=== PATIENT | male | born 1980 | race Caucasian/White ===

== ENCOUNTER 2021-09-23 09:08 | Emergency (ER) | payer OTHER, BC, SELFPAY ==
[2021-09-23] VITALS (9 sets, daily range): BP systolic 140–160; BP diastolic 68–95; PULSE 53–100; RESP 12–20; TEMP 36.6–36.9; O2SAT 94–100; BMI 29.8; BMI 38.0; BMI 29.6
--- NOTE | 2021-09-23 09:23 | XR_ITS ---
FINAL REPORT CLINICAL HISTORY: fall obs deformity FINDINGS: RIGHT WRIST Three views were obtained. There is comminuted fracture at the base of the radial styloid and dorsal distal radius with proximal displacement of the carpal bones. There is also a fracture of the ulnar styloid process. IMPRESSION: Fractures as above. Reviewed, Interpreted and Dictated by Mumtaz Strange III, MD Transcribed by Claire Jaramillo Authenticated and [facility]
--- NOTE | 2021-09-23 09:25 | HMH.EDUTC ---
[facility] Disposition Clinical Impression: Deformity of right wrist Dislocation of wrist, right, closed Qualifiers: Encounter type: initial encounter Qualified Code(s): S63.004A - Unspecified dislocation of right wrist and hand, initial encounter Fracture of right distal radius Qualifiers: Encounter type: initial encounter Fracture type: closed Fracture morphology: unspecified fracture morphology Qualified Code(s): S52.501A - Unspecified fracture of the lower end of right radius, initial encounter for closed fracture Disposition: Xfer Short-Term Hosp Condition on Discharge: Good Instructions: DI for Moderate Sedation Referrals: Provider,Referral, MD [Primary Care Provider] - Forms: Transfer Record - ED Time of Disposition: 09:32 Medical Decision Making - Juan Inquiry Pt receiving controlled substance: No Juan was queried for this patient: No Vital Signs: 09/23/21 09:20 09/23/21 09:22 09/23/21 09:58 Temperature 98.5 F 98 F Temperature Source Oral Oral Pulse Rate Pulse Rate [Left Radial] 55 L 100 H 59 L Respiratory Rate 18 20 16 Blood Pressure Blood Pressure [Right Arm] 140/68 160/95 H 140/87 Blood Pressure Mean Blood Pressure Mean [Right Arm] 92 116 104 Blood Pressure Position Blood Pressure Position [Right Arm] Sitting 02 Sat by Pulse Oximetry 94 L 97 96 Oxygen Delivery Method Room Air Oxygen Flow Rate (LPM) 09/23/21 10:50 09/23/21 10:55 09/23/21 11:00 Temperature Temperature Source Pulse Rate 55 L 61 57 L Pulse Rate [Left Radial] 66 59 L Respiratory Rate 16 16 16 Blood Pressure 151/82 H 149/92 H 159/92 H Blood Pressure [Right Arm] 149/92 H 149/92 H Blood Pressure Mean 113 116 107 Blood Pressure Mean [Right Arm] 111 111 Blood Pressure Position Sitting Blood Pressure Position [Right Arm] Sitting Sitting 02 Sat by Pulse Oximetry 98 98 100 Oxygen Delivery Method Nasal Cannula Nasal Cannula Room Air Oxygen Flow Rate (LPM) 4 4 09/23/21 11:05 09/23/21 11:17 09/23/21 12:50 Temperature 98 F Temperature Source Oral Pulse Rate 56 L 59 L Pulse Rate [Left Radial] 56 L Respiratory Rate 14 16 16 Blood Pressure 144/88 H 140/89 Blood Pressure [Right Arm] 152/82 H Blood Pressure Mean 100 Blood Pressure Mean [Right Arm] 105 Blood Pressure Position Sitting Blood Pressure Position [Right Arm] Sitting 02 Sat by Pulse Oximetry 99 98 Oxygen Delivery Method Nasal Cannula Room Air Oxygen Flow Rate (LPM) 4 Orders (Tests/Meds): ED MEDICATIONS Discontinued Medications Generic Name Dose Route Start Last Admin Trade Name Laurence PRN Reason Stop Dose Admin Morphine Sulfate 4 mg 09/23/21 09:30 09/23/21 09:32 Morphine 4mg/Ml Syringe IV 09/23/21 09:31 4 mg ONCE ONE Administration Morphine Sulfate 4 mg 09/23/21 09:51 09/23/21 09:52 Morphine 4mg/Ml Syringe IV 09/23/21 09:52 4 mg ONCE ONE Administration Ondansetron HCl 8 mg 09/23/21 09:30 09/23/21 09:31 Ondansetron 4mg/2ml Vial IV 09/23/21 09:31 8 mg ONCE ONE Administration Medical Decision Narrative: Obvious deformity to right wrist with abrasion on inside of wrist after falling 6-8ft from ladder states landed wrong Patient pale in color sweating profusely states that he needs pain medication feels like he is going to pass out Due to obvious deformity and falling 6-8ft from ladder patient to be sent to the ED for further treatment and evaluation patient agreed Called ED patient was moved to room 2 [facility] HPI - General Stated complaint: WC 09/23 rt wrist injury Time Seen by Provider: 09/23/21 09:26 Description of Symptoms (Recalled from Triage Doc. by RN): patient comes in for fall from ladder. right wrist has obvious deformity. patient states he fell 6-8 feet. HEENT Symptoms (Recalled from RN notes): No Resp Symptoms (Recalled from RN notes): No Skin Symptoms (Recalled from RN notes): No MS Symptoms (Recalled from RN notes): Yes Functional Status (Recalled from
--- NOTE | 2021-09-23 09:35 | PC.NURSE ---
medicated for pain at this time
--- NOTE | 2021-09-23 09:38 | PC.NURSE ---
radiology at bedside
--- NOTE | 2021-09-23 09:42 | HMH.EDUPEXT ---
ED Disposition Clinical Impression: Deformity of right wrist Dislocation of wrist, right, closed Qualifiers: Encounter type: initial encounter Qualified Code(s): S63.004A - Unspecified dislocation of right wrist and hand, initial encounter Fracture of right distal radius Qualifiers: Encounter type: initial encounter Fracture type: closed Fracture morphology: unspecified fracture morphology Qualified Code(s): S52.501A - Unspecified fracture of the lower end of right radius, initial encounter for closed fracture Disposition: Xfer Short-Term Hosp Condition on Discharge: Good Instructions: DI for Moderate Sedation Referrals: Provider,Referral, MD [Primary Care Provider] - Forms: Transfer Record - ED - Critical Care Critical Care Time: No Attestation: On 09/23/21, the high probability of a clinically significant, sudden or life threatening deterioration of the following system(s) required my full and direct attention, intervention and personal management. The time I documented below is in addition to time spent performing reported procedures but includes the following listed in this critical care notation. Medical Decision Making - Medical Records Medical records reviewed: Yes: I reviewed the patient's medical records. - Juan Inquiry Pt receiving controlled substance: No Vital Signs: 09/23/21 09:20 09/23/21 09:22 09/23/21 09:58 Temperature 98.5 F 98 F Temperature Source Oral Oral Pulse Rate Pulse Rate [Left Radial] 55 L 100 H 59 L Respiratory Rate 18 20 16 Blood Pressure Blood Pressure [Right Arm] 140/68 160/95 H 140/87 Blood Pressure Mean Blood Pressure Mean [Right Arm] 92 116 104 Blood Pressure Position Blood Pressure Position [Right Arm] Sitting 02 Sat by Pulse Oximetry 94 L 97 96 Oxygen Delivery Method Room Air Oxygen Flow Rate (LPM) 09/23/21 10:50 09/23/21 10:55 09/23/21 11:00 Temperature Temperature Source Pulse Rate 55 L 61 57 L Pulse Rate [Left Radial] 66 59 L Respiratory Rate 16 16 16 Blood Pressure 151/82 H 149/92 H 159/92 H Blood Pressure [Right Arm] 149/92 H 149/92 H Blood Pressure Mean 113 116 107 Blood Pressure Mean [Right Arm] 111 111 Blood Pressure Position Sitting Blood Pressure Position [Right Arm] Sitting Sitting 02 Sat by Pulse Oximetry 98 98 100 Oxygen Delivery Method Nasal Cannula Nasal Cannula Room Air Oxygen Flow Rate (LPM) 4 4 09/23/21 11:05 09/23/21 11:17 Temperature Temperature Source Pulse Rate 56 L Pulse Rate [Left Radial] 56 L Respiratory Rate 14 16 Blood Pressure 144/88 H Blood Pressure [Right Arm] 152/82 H Blood Pressure Mean 100 Blood Pressure Mean [Right Arm] 105 Blood Pressure Position Blood Pressure Position [Right Arm] Sitting 02 Sat by Pulse Oximetry 99 98 Oxygen Delivery Method Nasal Cannula Oxygen Flow Rate (LPM) 4 Orders (Tests/Meds): ED MEDICATIONS Discontinued Medications Generic Name Dose Route Start Last Admin Trade Name Laurence PRN Reason Stop Dose Admin Morphine Sulfate 4 mg 09/23/21 09:30 09/23/21 09:32 Morphine 4mg/Ml Syringe IV 09/23/21 09:31 4 mg ONCE ONE Administration Morphine Sulfate 4 mg 09/23/21 09:51 09/23/21 09:52 Morphine 4mg/Ml Syringe IV 09/23/21 09:52 4 mg ONCE ONE Administration Ondansetron HCl 8 mg 09/23/21 09:30 09/23/21 09:31 Ondansetron 4mg/2ml Vial IV 09/23/21 09:31 8 mg ONCE ONE Administration ORDERS Category Date Time Status Wrist XR right 2 views [XR wrist RT 2V] Stat Exams 09/23/21 10:33 Taken - Physician Consults Time: 11:42 (Dr Jamey Rutledge [facility] accpts transfer) Upper Extremity HPI - General Stated Complaint: WC 09/23 rt wrist injury Time Seen by Provider: 09/23/21 09:26 Description of Symptoms (Recalled from ER Triage Doc. by RN): patient comes in for fall from ladder. right wrist has obvious deformity. patient states he fell 6-8 feet. - History of Present Illness HPI narrative: rt wrist pain, f
--- NOTE | 2021-09-23 09:56 | PC.NURSE ---
ice pack given
--- NOTE | 2021-09-23 10:04 | XR_ITS ---
FINAL REPORT CLINICAL HISTORY: FALL, pain FINDINGS: 2 views of the right elbow were obtained. There is no acute fracture or dislocation. There is no joint effusion. The joint spaces are intact. There are no acute soft tissue abnormalities. IMPRESSION: No acute process. Reviewed, Interpreted and Dictated by Mumtaz Strange III, MD Transcribed by Sergey Espinosa Authenticated and [facility]
--- NOTE | 2021-09-23 10:33 | XR_ITS ---
FINAL REPORT CLINICAL HISTORY: trauma/lateral needed, POST SPLINT COMPARISON: Earlier on the same day FINDINGS: RIGHT WRIST 2 views were obtained. There has been interval reduction of the distal radial and ulnar fractures. There is improved bony alignment. There is persistent distraction of the radial fracture fragments of up to 6 mm. A splint is present. IMPRESSION: Persistent distraction of the radial fracture fragments up to 6 mm. Reviewed, Interpreted and Dictated by Mumtaz Strange III, MD Transcribed by Lolis Jim Authenticated and [facility]
--- NOTE | 2021-09-23 10:50 | PC.NURSE ---
at with nursing staff
--- NOTE | 2021-09-23 11:00 | PC.NURSE ---
SUGAR TONG SPLINT APPLIED TO RT ARM
--- NOTE | 2021-09-23 11:11 | PC.NURSE ---
Called [facility] for ortho per pt request for a Dr Fountain, he is on vacation and no on in the office.
--- NOTE | 2021-09-23 11:17 | PC.NURSE ---
radiology notified to [employer] [facility] to [facility]
--- NOTE | 2021-09-23 11:25 | PC.NURSE ---
contacted radiology to check on status of images being powershared to [facility], spoke with sharonda in radiology. States they shared images at 1110. [facility] is states they can not view images. Sharonda states she is going to reshare images. Notified CARRIE LI
--- NOTE | 2021-09-23 11:33 | PC.NURSE ---
pt accepted to [facility] by Dr. Concepcion.
--- NOTE | 2021-09-23 11:51 | PC.NURSE ---
notified [facility] of transfer to [facility]
--- NOTE | 2021-09-23 12:00 | PC.NURSE ---
REPORT GIVEN TO RAMY AT [facility] ED AT THIS TIME.
--- NOTE | 2021-09-23 12:00 | PC.NURSE ---
ICE PACK CHANGED AND REAPPLIED. FAMILY UPDATED ON PLAN OF CARE
--- NOTE | 2021-09-23 12:25 | PC.NURSE ---
report given to [facility]
== END 2021-09-23 12:52 | disposition short-term general hospital (02) ==
LOC: UTC 09:14 → ER 09:22
PROVIDERS: Emergency Provider Emergency Medicine
DX: S63.004A Unspecified dislocation of right wrist and hand, initial encounter (principal); R61 Generalized hyperhidrosis; Z88.0 Allergy status to penicillin; W01.198A Fall on same level from slipping, tripping and stumbling with subsequent striking against other object, initial encounter
CPT/HCPCS: 29125; 73070; 73100; 73110; 96374; 96375; 96376; 99285; J2405

== ENCOUNTER → 2021-09-30 08:42 | Outpatient (CLI) | payer BC, SELFPAY | PROVIDERS: Visit Provider Orthopaedic Surgery Hand Surgery | DX: U07.1 COVID-19 (principal) | CPT/HCPCS: C9803; U0003; U0005 ==

== ENCOUNTER 2022-06-03 12:58 | Observation (INO) | payer BC, SELFPAY ==
[2022-06-03] VITALS (8 sets, daily range): BP systolic 110–128; BP diastolic 60–71; PULSE 73–84; RESP 16–18; TEMP 36.6–37.3; O2SAT 98–100; BMI 28.8
[2022-06-03 13:34] LABS: Basophils % 0.2 % (0.1-2.0); Eosinophils # 0.1 K/mm3 (0.0-0.4); Lymphocytes % 29.2 % (10-50); Mean Corpuscular HGB Conc 30.7 g/dL (31.8-35.4); Mean Corpuscular Volume 81.3 fl (80-94); Mean Platelet Volume 10.6 fl (7.4-10.4); Monocytes # 0.5 K/mm3 (0.1-1.0); Monocytes % 7.3 % (1.7-9.3); Neutrophils # 4.3 K/mm3 (1.8-7.8); Neutrophils % 62.3 % (37.0-80.0); Platelet Count 213 K/mm3 (142-424); Red Blood Count 2.14 M/mm3 (4.60-6.20); Red Cell Distribution Width 16.8 % (11.5-17.5); White Blood Count 6.9 K/mm3 (4.8-10.8)
[2022-06-03 13:37] LABS: Chloride 107 mmol/L (98-107)
[2022-06-03 13:38] LABS: Potassium 3.4 mmoL/L (3.5-5.1); Sodium 137 mmol/L (136-145)
[2022-06-03 13:40] LABS: Alanine Aminotransferase 20 U/L (12-78); Alkaline Phosphatase 46 U/L (38-126); Aspartate Amino Transferase 23 U/L (17-59); Bilirubin,Total 0.3 mg/dl (0.2-1.3); Blood Urea Nitrogen 11 mg/dl (9-20); Creatinine Clearance Estimated 194 mL/min (50-200); Estimated Glomerular Filt Rate 147 ml/min (>60); GFR (African American) 178 ML/MIN (>60); Hematocrit 17.4 % (42.0-52.0)
--- NOTE | 2022-06-03 13:40 | PC.NURSE ---
CARRIE LI notified of critical hemaglobin and hematocrit CARRIE LI states he will place and order type and cross match for 2units- notified lab CARRIE LI will be placing this order.
[2022-06-03 13:41] LABS: Albumin Level 3.9 g/dl (3.5-5.0); Anion Gap 7.4 mEq/L (5-15); Calcium 7.9 mg/dl (8.4-10.2); Carbon Dioxide 26 mmol/L (22.0-30.0); Glucose 159 mg/dl (74-100); Lipase 71 U/L (23-300); Total Protein,Serum 5.9 g/dl (6.3-8.2)
--- NOTE | 2022-06-03 13:48 | PC.NURSE ---
Updated patient and spouse about critically low Hgb/Hct result being released by Lab, anticipating type, crossmatch and transfusion of 2 units PRBCs for pt
--- NOTE | 2022-06-03 14:04 | PC.NURSE ---
Dr. Henning at bedside seeing pt
--- NOTE | 2022-06-03 14:15 | HMH.EDGENADL ---
Discharge Plan Disposition Patient Disposition: Admitted as Observation Condition: Fair Chief Complaint: Abdominal Pain Referrals Follow up/Referrals: Lolis Crum PA [Primary Care Provider] - See instructions Clinical Impressions Clinical Impression: Acute blood loss anemia, Melena Discharge ED Provider: Anthony Henning General Adult HPI General Chief complaint: Abdominal Pain Stated complaint: Weakness excessive burping facial color changing Time Seen by Provider: 06/03/22 13:56 Mode of Arrival: Ambulatory Source of Information: Patient Limitations: No Limitations Description of Symptoms (Recalled from ER Triage Doc. by RN): Pt w presenting to ED c/o 1 week of worsening sensation of GI fullness, burping, LUQ pain, 10lb weight loss, with subjective color changes History of Present Illness HPI narrative: Patient complains of lack of energy and fatigue for couple of weeks. Noticed pale skin color on Wednesday, 5 days ago. Stool has been black for several days. No hematemesis. Has a sensation of epigastric fullness and belching. He has been off of work for wrist injury for about 8 months. Just went back to work 3 weeks ago. He takes meloxicam for his wrist about once a week and occasionally takes an ibuprofen. He is not on any NSAIDs on a daily basis. He very rarely drinks alcohol, none within the past week. No history of GI bleed or peptic ulcer disease. Related Data Allergies Allergy/AdvReac Type Severity Reaction Status Date / Time Penicillins [PENICILLINS] Allergy Unknown Verified 09/23/21 09:25 [facility] Disclaimer: The information contained in this section may have been updated after the patient was seen, as this information can be updated by other users. Social History Smoking Status: Current every day smoker ROS Obtained: Yes Systems reviewed as appropriate & no additional complaints except as documented Constitutional Constitutional: Reports fatigue, Denies fever(s), Denies headache(s) and Denies weakness ENT Ears, Nose, Mouth, and Throat: Denies headache(s), Denies nasal discharge and Denies sore throat Cardiovascular Cardiovascular: Denies chest pain Respiratory Respiratory: Denies shortness of breath and Denies cough Gastrointestinal Gastrointestingal: Reports abdominal pain and melena; Denies constipation, diarrhea, hematemesis, hematochezia or vomiting Genitourinary Male Genitourinary: Denies difficulty urinating and Denies flank pain Musculoskeletal Musculoskeletal: Denies numbness Neurologic Neurologic: Denies headache(s), Denies numbness and Denies weakness Endocrine Endocrine: Reports fatigue Physical Exam General General appearance: alert and in no apparent distress Head Head exam: atraumatic and normocephalic Eye Eye exam: Present normal appearance and EOMI ENT ENT exam: Present mucous membranes moist Neck Neck exam: Present normal inspection and trachea midline Chest Chest inspection: Present normal inspection and symmetric chest wall rise Respiratory Respiratory exam: Present normal lung sounds bilaterally; Absent respiratory distress Cardiovascular Cardiovascular exam: Present regular rate, normal rhythm and normal heart sounds Abdominal Exam Abdominal exam: Present soft and normal bowel sounds; Absent distention, tenderness, guarding, rebound or rigidity Rectal Exam Rectal exam: Present normal inspection, normal rectal tone and other (Rectal vault empty, minimal smear of stool obtained for occult blood testing) Extremities Exam Extremities exam: Present normal inspection Neurological Exam Neurological exam: Present alert and oriented X3 Psychiatric Psychiatric exam: Present normal affect and normal mood Skin Skin exam: Present warm, dry and pallor Medical Decision Making Juan Inquiry Pt receiving controlled substance: No Vital Signs: 06/03/22 13:15 06/03/22 14:37 Temperature 97.9 F Temperature Source Oral Pulse Rate 76 Pulse Rate [Left R
[2022-06-03 14:18] LABS: Occult Blood,Stool Positive (Negative)
--- NOTE | 2022-06-03 14:41 | PC.NURSE ---
hook top tube for lactic acid sent to lab
[2022-06-03 14:50] LABS: Activated Partial Thrombo Time 20.2 seconds (22.8-30.6); INR 1.03 (0.9-1.1); Prothrombin Time 11.1 seconds (10.1-12.5)
[2022-06-03 15:02] LABS: Hemoglobin 5.3 g/dL (14.1-18.0)
[2022-06-03 15:03] LABS: Lactic Acid 0.9 mmol/L (0.7-2.1)
--- NOTE | 2022-06-03 15:17 | EXP.HP ---
History of Present Illness *Admission Date: 06/03/22 *Reason for visit:: Fatigue, weakness *History of present illness: Mr. Bray is a pleasant 41-year-old gentleman with no significant past medical history. States he has been having progressive weakness and fatigue over the past month. His family remarked that he is gotten more pale over the past week and encouraged him to come to the ER for evaluation. On arrival the patient is stable on room air, normal blood pressure normal heart rate. Labs concerning for marked anemia with hemoglobin of 5.3. No other significant lab abnormalities. Stool guaiac positive. He does report that he has been having some intermittent dark stools and epigastric discomfort like heartburn for the past few weeks. He does not drink regularly, maybe once a month. Takes NSAIDs once a week for wrist pain. Otherwise in his normal baseline health. Medicine consulted for admission. Denies chest pain, shortness of breath, syncope, confusion PFSH PFS Disclaimer: The information contained in this section may have been updated after the patient was seen, as this information can be updated by other users. Medical History (Updated 06/03/22 @ 17:06 by Zoraida Reid RN) No significant past medical history No significant past medical history Family History (Updated 06/03/22 @ 17:06 by Zoraida Reid RN) No significant family history Social History (Updated 06/03/22 @ 17:07 by Zoraida Reid RN) Smoking Status: Never smoker alcohol intake: never substance use type: marijuana current occupational status: other Travel in the last 8 weeks: None Review of Systems Review of Systems Review of systems (narrative): 14 point review of systems performed, pertinent positives and negatives as per HPI Constitutional Constitutional: Denies headache(s) and Denies weakness ENT Ears, Nose, Mouth, and Throat: Denies headache(s) *Musculoskeletal Musculoskeletal: Denies numbness *Neurologic Neurologic: Denies headache(s), Denies numbness and Denies weakness Meds Home Medications and Allergies New Prescriptions to Start Prescriptions: Allergies Allergy/AdvReac Type Severity Reaction Status Date / Time Penicillins [PENICILLINS] Allergy Unknown Verified 09/23/21 09:25 Exam Data for Last 24 hours Vital signs and Labs for Last 24 Hours: Temp Pulse Resp BP Pulse Ox 97.9 F 76 16 110/71 100 06/03/22 13:15 02/22/23 14:37 06/03/22 13:15 06/03/22 14:37 06/03/22 14:37 Laboratory Results - last 24 hr 06/03/22 13:10: WBC 6.9, RBC 2.14 L, Hgb 5.3 L*, Hct 17.4 L*, MCV 81.3, MCH 25.0 L, MCHC 30.7 L, RDW 16.8, Plt Count 213, MPV 10.6 H, Neut % (Auto) 62.3, Lymph % (Auto) 29.2, Greenlee % (Auto) 7.3, Eos % (Auto) 1.0, Baso % (Auto) 0.2, Neut # (Auto) 4.3, Lymph # (Auto) 2.0, Greenlee # (Auto) 0.5, Eos # (Auto) 0.1, Baso # (Auto) 0.0 06/03/22 13:10: Sodium 137, Potassium 3.4 L, Chloride 107, Carbon Dioxide 26, Anion Gap 7.4, BUN 11, Creatinine 0.60 L, Estimated Creat Clear 194, Estimated GFR 147, Est GFR ( Amer) 178, Glucose 159 H, Calcium 7.9 L, Total Bilirubin 0.3, AST 23, ALT 20, Alkaline Phosphatase 46, Total Protein 5.9 L, Albumin 3.9, Globulin 2.0, Albumin/Globulin Ratio 2.0 H, Lipase 71 06/03/22 13:11: PT 11.1, INR 1.03, APTT 20.2 L 06/03/22 13:55: Stool Occult Blood Positive A 06/03/22 14:37: Lactate 0.9 I & O for Last 24 hours: Intake & Output 05/31/22 06/01/22 06/02/22 06/03/22 23:59 23:59 23:59 23:59 Weight 86.183 kg Constitutional Constitutional: no acute distress and average body habitus *Routine HEENT Exam Head: Present normocephalic and atraumatic Eye: Present EOMI and PERRL ENT: Present mucous membranes moist Comments: conjunctival pallor *Routine Neck Exam Neck: Present supple; Absent JVD Routine Chest/Breast/Axilla Exam Chest wall: Absent tenderness *Routine Respiratory Exam Respiratory: Present CTA bilaterally; Absent accessory muscle use, respiratory dis
--- NOTE | 2022-06-03 15:54 | PC.NURSE ---
Helen from lab called, have to get type and screen done by [facility] due to issues.
--- NOTE | 2022-06-03 15:56 | PC.NURSE ---
notified [facility] house oiler of admission
[2022-06-03 16:12] LABS: Coronavirus 19, PCR Not Detected (NotDetected); Influenza A, PCR Not Detected (NotDetected); Influenza B, PCR Not Detected (NotDetected)
--- NOTE | 2022-06-03 16:31 | PC.NURSE ---
dr. young at BS
--- NOTE | 2022-06-03 16:35 | PC.NURSE ---
report called to delio crook rn on second floor at this time, states she will send staff down to transport pt. notified her covid swab is pending house okayed for pt to go up to second floor with swab pending. also pt has antibodies that are requiring that we receive blood from [facility].
--- NOTE | 2022-06-03 18:38 | PC.NURSE ---
PT VSS, NO C/O OTHER THAN BEING TIRED AT THE MOMENT. PT REF CLEAR LIQUIDS AND SCUDS. WAITING ON PT BLOOD. NO SKIN ISSUES OR COMPLAINTS/CONCERNS AT THIS TIME. ERYTHROMYCIN ORDER, PER AMARJIT GIVE 30-60MINS PRIOR TO EGD, WHEN RAFAEL SCHEDULES A TIME. 2 HR POST H&H. NO SKIN ISSUES NOTED.
[2022-06-04] VITALS (36 sets, daily range): BP systolic 87–131; BP diastolic 38–82; PULSE 61–82; RESP 16–18; TEMP 36.5–37.1; O2SAT 16–100; BMI 28.8
--- NOTE | 2022-06-04 04:50 | PC.NURSE ---
Blood started at 03:40 and no changes noted.
[2022-06-04 06:30] LABS: Chloride 107 mmol/L (98-107); Sodium 136 mmol/L (136-145)
[2022-06-04 06:31] LABS: Basophils % 0.3 % (0.1-2.0); Eosinophils # 0.1 K/mm3 (0.0-0.4); Eosinophils % 1.3 % (0.1-12.0); Lymphocytes # 1.4 K/mm3 (0.7-4.5); Lymphocytes % 31.9 % (10-50); Mean Corpuscular Volume 86.7 fl (80-94); Mean Platelet Volume 11.7 fl (7.4-10.4); Monocytes # 0.4 K/mm3 (0.1-1.0); Monocytes % 8.9 % (1.7-9.3); Neutrophils # 2.5 K/mm3 (1.8-7.8); Neutrophils % 57.5 % (37.0-80.0); Platelet Count 137 K/mm3 (142-424); Red Blood Count 2.23 M/mm3 (4.60-6.20); White Blood Count 4.3 K/mm3 (4.8-10.8)
[2022-06-04 06:31] LABS: Potassium 3.5 mmoL/L (3.5-5.1)
--- NOTE | 2022-06-04 06:32 | PC.NURSE ---
Called lab and spoke with charge and house about getting the timer on the blood to end. Blood ended at 06:20 and completion vitals entered.
[2022-06-04 06:33] LABS: Alanine Aminotransferase 18 U/L (12-78); Albumin Level 3.3 g/dl (3.5-5.0); Albumin/Globulin Ratio 1.7 (1.1-1.8); Alkaline Phosphatase 46 U/L (38-126); Anion Gap 6.5 mEq/L (5-15); Aspartate Amino Transferase 23 U/L (17-59); Bilirubin,Total 0.4 mg/dl (0.2-1.3); Blood Urea Nitrogen 7 mg/dl (9-20); Calcium 7.5 mg/dl (8.4-10.2); Carbon Dioxide 26 mmol/L (22.0-30.0); Creatinine Clearance Estimated 194 mL/min (50-200); Estimated Glomerular Filt Rate 147 ml/min (>60); GFR (African American) 178 ML/MIN (>60); Glucose 113 mg/dl (74-100); Total Protein,Serum 5.3 g/dl (6.3-8.2)
[2022-06-04 06:34] LABS: Magnesium 2.2 mg/dl (1.6-2.3)
[2022-06-04 06:35] LABS: Hematocrit 19.3 % (42.0-52.0); Hemoglobin 5.8 g/dL (14.1-18.0)
--- NOTE | 2022-06-04 06:37 | EXP.SURG.CON ---
History of Present Illness *Admission Date: 06/03/22 *Reason for visit:: Anemia *History of present illness: This is a 41-year-old gentleman seen in consultation from the Hospitalist Service after evaluation in the emergency department for progressive weakness/fatigue. He was found to have fairly profound anemia with a hemoglobin of 5.8. Stool guaiac positive. Intermittent dark stool . He has received 1 unit of packed red blood cells and states he feels not too bad . He is scheduled to receive an additional 1 unit of packed red blood cells this morning. Please see HPI forwarded from admission H&P below. Forwarded from admission H&P: Mr. Bray is a pleasant 41-year-old gentleman with no significant past medical history. States he has been having progressive weakness and fatigue over the past month. His family remarked that he is gotten more pale over the past week and encouraged him to come to the ER for evaluation. On arrival the patient is stable on room air, normal blood pressure normal heart rate. Labs concerning for marked anemia with hemoglobin of 5.3. No other significant lab abnormalities. Stool guaiac positive. He does report that he has been having some intermittent dark stools and epigastric discomfort like heartburn for the past few weeks. He does not drink regularly, maybe once a month. Takes NSAIDs once a week for wrist pain. Otherwise in his normal baseline health. Medicine consulted for admission. Denies chest pain, shortness of breath, syncope, confusion [facility] Disclaimer: The information contained in this section may have been updated after the patient was seen, as this information can be updated by other users. Medical History (Updated 06/03/22 @ 17:06 by Zoraida Reid RN) No significant past medical history No significant past medical history Family History (Updated 06/03/22 @ 17:06 by Zoraida Reid RN) No significant family history Social History (Updated 06/03/22 @ 17:23 by Flavio Winston MD) Smoking Status: Never smoker alcohol intake: never substance use type: marijuana current occupational status: other Travel in the last 8 weeks: None Review of Systems Constitutional Constitutional: Denies headache(s) and Denies weakness ENT Ears, Nose, Mouth, and Throat: Denies headache(s) *Musculoskeletal Musculoskeletal: Denies numbness *Neurologic Neurologic: Denies headache(s), Denies numbness and Denies weakness Meds Home Medications and Allergies New Prescriptions to Start Prescriptions: Allergies Allergy/AdvReac Type Severity Reaction Status Date / Time Penicillins [PENICILLINS] Allergy Unknown Verified 09/23/21 09:25 Exam (Inpt) Vital signs and Labs for Last 24 Hours: Temp Pulse Resp BP Pulse Ox 98.2 F 66 17 115/53 L 99 06/04/22 06:20 06/04/22 06:20 06/04/22 06:20 06/04/22 06:20 06/04/22 06:20 Laboratory Results - last 24 hr 06/03/22 13:10: WBC 6.9, RBC 2.14 L, Hgb 5.3 L*, Hct 17.4 L*, MCV 81.3, MCH 25.0 L, MCHC 30.7 L, RDW 16.8, Plt Count 213, MPV 10.6 H, Neut % (Auto) 62.3, Lymph % (Auto) 29.2, Maries % (Auto) 7.3, Eos % (Auto) 1.0, Baso % (Auto) 0.2, Neut # (Auto) 4.3, Lymph # (Auto) 2.0, Maries # (Auto) 0.5, Eos # (Auto) 0.1, Baso # (Auto) 0.0 06/03/22 13:10: Sodium 137, Potassium 3.4 L, Chloride 107, Carbon Dioxide 26, Anion Gap 7.4, BUN 11, Creatinine 0.60 L, Estimated Creat Clear 194, Estimated GFR 147, Est GFR ( Amer) 178, Glucose 159 H, Calcium 7.9 L, Total Bilirubin 0.3, AST 23, ALT 20, Alkaline Phosphatase 46, Total Protein 5.9 L, Albumin 3.9, Globulin 2.0, Albumin/Globulin Ratio 2.0 H, Lipase 71 06/03/22 13:11: PT 11.1, INR 1.03, APTT 20.2 L 06/03/22 13:55: Stool Occult Blood Positive A 06/03/22 14:00: Blood Type A Positive, Antibody Screen Negative, Crossmatch (AHG) See Detail 06/03/22 14:37: Lactate 0.9 06/03/22 15:55: SARS-CoV-2 (PCR) Not detected, Influenza A Untype (PCR) Not detected, Influenza Type B (PCR) Not detected 02
--- NOTE | 2022-06-04 08:59 | EXP.ACUTE.PN ---
Subjective *Date: 06/04/22 *Time: 09:28 Interval history: No acute events overnight. Patient feeling more energetic after getting blood. N.p.o. this morning. Awaiting EGD. Difficulty obtaining blood due to difficult crossmatch. Denies chest pain, shortness of breath, nausea or vomiting. Family at bedside, updated on plan. Medical Exam Vital signs and Labs for Last 24 Hours: Vital Signs Temp Pulse Pulse Resp BP BP Pulse Ox 06/04/22 07:10 98.3 F 69 16 104/54 L 98 06/04/22 07:10 98.4 F 65 16 103/55 L 97 06/04/22 07:05 98.5 F 69 16 106/57 L 99 06/04/22 06:55 70 16 109/60 L 99 06/04/22 06:20 98.2 F 66 17 115/53 L 99 06/04/22 05:40 98.5 F 18 109/56 L 98 06/04/22 04:40 98.6 F 18 115/62 100 06/04/22 04:25 98.4 F 65 18 110/56 L 97 06/04/22 04:10 98.3 F 68 18 101/58 L 97 06/04/22 03:55 98.5 F 68 116/56 L 18 L 06/04/22 03:46 98.4 F 18 124/61 99 06/04/22 03:44 98.4 F 70 18 124/54 L 97 06/04/22 03:41 98.4 F 18 120/53 L 97 06/04/22 03:39 98.4 F 70 18 120/61 98 06/03/22 20:00 99 06/03/22 19:36 99.2 F 78 18 128/60 99 06/03/22 16:54 98.5 F 75 18 124/66 98 06/03/22 16:45 98.0 F 78 16 123/70 06/03/22 15:31 73 125/62 99 06/03/22 14:59 77 124/68 99 06/03/22 14:37 76 110/71 100 06/03/22 13:15 97.9 F 84 16 125/68 100 Intake and Output 06/03/22 06/04/22 06/04/22 23:59 07:59 15:59 Intake Total 240 / 240 0 / 0 Output Total 0 / 0 0 / 0 Balance 240 / 240 0 / 0 Intake: Intake, Oral Amount 240 / 240 0 / 0 Intake (Blood Product) Amt 0 / 0 Red Blood Cells Unit 0 / 0 [id number] Output: Output, Urine Amount 0 / 0 0 / 0 Other: Number of Unmeasured Voids 1 1 Weight 86.183 kg 86.183 kg Patient Weight 06/04/22 23:59 Weight 86.183 kg Laboratory Results - last 24 hr 06/03/22 13:10: WBC 6.9, RBC 2.14 L, Hgb 5.3 L*, Hct 17.4 L*, MCV 81.3, MCH 25.0 L, MCHC 30.7 L, RDW 16.8, Plt Count 213, MPV 10.6 H, Neut % (Auto) 62.3, Lymph % (Auto) 29.2, Emmons % (Auto) 7.3, Eos % (Auto) 1.0, Baso % (Auto) 0.2, Neut # (Auto) 4.3, Lymph # (Auto) 2.0, Emmons # (Auto) 0.5, Eos # (Auto) 0.1, Baso # (Auto) 0.0 06/03/22 13:10: Sodium 137, Potassium 3.4 L, Chloride 107, Carbon Dioxide 26, Anion Gap 7.4, BUN 11, Creatinine 0.60 L, Estimated Creat Clear 194, Estimated GFR 147, Est GFR ( Amer) 178, Glucose 159 H, Calcium 7.9 L, Total Bilirubin 0.3, AST 23, ALT 20, Alkaline Phosphatase 46, Total Protein 5.9 L, Albumin 3.9, Globulin 2.0, Albumin/Globulin Ratio 2.0 H, Lipase 71 06/03/22 13:11: PT 11.1, INR 1.03, APTT 20.2 L 06/03/22 13:55: Stool Occult Blood Positive A 06/03/22 14:00: Blood Type A Positive, Antibody Screen Negative, Crossmatch (AHG) See Detail 06/03/22 14:37: Lactate 0.9 06/03/22 15:55: SARS-CoV-2 (PCR) Not detected, Influenza A Untype (PCR) Not detected, Influenza Type B (PCR) Not detected 06/04/22 05:47: WBC 4.3 L D, RBC 2.23 L, Hgb 5.8 L*, Hct 19.3 L*, MCV 86.7, MCH 26.0 L, MCHC 30.0 L, RDW 17.0, Plt Count 137 L D, MPV 11.7 H, Neut % (Auto) 57.5, Lymph % (Auto) 31.9, Emmons % (Auto) 8.9, Eos % (Auto) 1.3, Baso % (Auto) 0.3, Neut # (Auto) 2.5, Lymph # (Auto) 1.4, Emmons # (Auto) 0.4, Eos # (Auto) 0.1, Baso # (Auto) 0.0 06/04/22 05:51: Sodium 136, Potassium 3.5, Chloride 107, Carbon Dioxide 26, Anion Gap 6.5, BUN 7 L D, Creatinine 0.60 L, Estimated Creat Clear 194, Estimated GFR 147, Est GFR ( Amer) 178, Glucose 113 H D, Calcium 7.5 L, Magnesium 2.2, Total Bilirubin 0.4, AST 23, ALT 18, Alkaline Phosphatase 46, Total Protein 5.3 L, Albumin 3.3 L D, Globulin 2.0, Albumin/Globulin Ratio 1.7 I & O for Labs for Last 24 Hours: Intake & Output 06/01/22 06/02/22 06/03/22 06/04/22 23:59 23:59 23:59 23:59 Intake Total 240 / 240 0 / 0 Output Total 0 / 0 0 / 0 Balance 240 / 240 0 / 0 Weight 86.183 kg 86.183 kg Constitutional: Present no
--- NOTE | 2022-06-04 09:34 | PC.NURSE ---
PT TAKEN DOWN TO OR FOR EGD
--- NOTE | 2022-06-04 10:27 | EXP.ANES.CKL ---
[facility] Disclaimer: The information contained in this section may have been updated after the patient was seen, as this information can be updated by other users. Medical History (Updated 06/03/22 @ 17:06 by Zoraida Reid RN) No significant past medical history No significant past medical history Family History (Updated 06/03/22 @ 17:06 by Zoraida Reid RN) Other No significant family history Social History (Updated 06/03/22 @ 17:23 by Flavio Winston MD) Smoking Status: Never smoker alcohol intake: never substance use type: marijuana current occupational status: other Travel in the last 8 weeks: None [facility] Anesthesia Checklist Patient Identification Patient Identification: Arm Band and Family Structural Data Admitted From: Home Planned Operative Procedure/s: EGD to rule out gastric ulcer. Consent for Planned Operative Procedure(s) Verified: Yes Verified Documents: Surgical Consent NPO Status Verified Time NPO: 00:00 Additional verifications Patient : No Hx Blood Transfusions: No Blood Transfusion Reaction: No Cephalosporin Allergy: No Previous Colonoscopy: No Airway Assessment C-Spine Mobility Assessed: Yes TMJ Mobility Assessed: Yes Dentition: Good Dentition Neurological Assessment Level of Consciousness: Awake, Alert, Appropriate and Follows Commands Numbness or tingling in extremities: No Anesthesia Plan Anesthesia Risk discussed: Yes ASA Class: II Anesthesia Type: MAC Preoperative Comments Pre-Operative Comments: Dark bloody stools.
--- NOTE | 2022-06-04 11:11 | PC.NURSE ---
OR NURSE CALLED, DR HALL IS WANTING PT TO HAVE A BLOOD TRANSFUSION NOW. NOTIFIED THEM THAT PT 2 UNITS ORDERED BUT BLOOD HAS TO COME FROM [facility] [facility]. NOTIFIED AMARJIT, HE SPEAKING WITH BLOOD BANK/LAB.
--- NOTE | 2022-06-04 11:31 | HMH.SCOPE ---
Procedure: Date: 06/04/22 Patient Date of :: 1980 Procedure Performed:: Esophagogastroduodenoscopy with biopsy and clip placement Indications:: Anemia Melena Performing Provider:: Octavio Harrison MD Referring Provider:: Hospitalist Service Sedation:: Monitored anesthesia care Procedure:: After informed consent was obtained the patient was taken to the endoscopy suite. Sedation ensued after the patient was transferred to the left lateral decubitus position. Pulse, blood pressure, and oxygen saturation were monitored throughout the procedure. The endoscope was advanced beyond the duodenal bulb. Retroflexion within the gastric lumen was accomplished. The gastroscope was carefully removed and the patient was transferred to recovery in stable condition. Please see findings and specimens below for detail. Findings:: No active bleeding noted initially No obvious ulceration Very poor distention of proximal and mid gastric body Tiny erosions along gastric cardia (unable to fully evaluate secondary to incomplete gastric distention) Superficial dilated veins versus true cardia varices (unable to fully evaluate secondary to incomplete gastric distention) Note: Biopsy of superficial erosion in gastric cardia created venous rent requiring Resolution 360 clip placement (x3). Specimens:: Biopsy of antrum Biopsy of superficial cardia erosion Recommendations:: Continue proton pump inhibition Likely benefit from short-term repeat esophagogastroduodenoscopy for reevaluation of gastric cardia region. May require general anesthesia to improve gastric distention. Complications:: No immediate with the exception of limited visualization of the proximal and mid gastric body secondary to poor distention. Estimated blood obtained (mL): 25
[2022-06-04 12:27] LABS: Hemoglobin 7.1 g/dL (14.1-18.0)
[2022-06-04 12:28] LABS: Hematocrit 21.8 % (42.0-52.0)
--- NOTE | 2022-06-04 16:53 | PC.NURSE ---
pt given a total of 3 units of blood today per hannah, hold the 4th. 2 units available in blood bank if needed. vss, pt on clear liquids tolerating well. no n/v/p or bloody stools. pt doing well right now, sitting up in bed talking, pt states he feels much better, just ready to get home at bedside, no questions or concerns at this time.
[2022-06-04 19:39] LABS: Hematocrit 27.2 % (42.0-52.0)
[2022-06-04 19:45] LABS: Hemoglobin 8.7 g/dL (14.1-18.0)
[2022-06-05 04:00] VITALS: BP 109/48; PULSE 57; RESP 16; TEMP 36.8; O2SAT 100; BMI 29.6
--- NOTE | 2022-06-05 04:45 | PC.NURSE ---
pt restless through the night, pt is alert and oriented x4, vss, skin pwd, pt denies pain or any discomfort, no issues or concerns. pt in no acute distress, labs improved after transfusion.
[2022-06-05 06:28] LABS: Basophils % 0.2 % (0.1-2.0); Eosinophils # 0.1 K/mm3 (0.0-0.4); Eosinophils % 1.2 % (0.1-12.0); Hematocrit 25.5 % (42.0-52.0); Hemoglobin 8.1 g/dL (14.1-18.0); Lymphocytes # 1.6 K/mm3 (0.7-4.5); Lymphocytes % 35.4 % (10-50); Mean Corpuscular HGB Conc 31.7 g/dL (31.8-35.4); Mean Corpuscular Hemoglobin 27.1 pg (27.0-31.2); Mean Corpuscular Volume 85.6 fl (80-94); Mean Platelet Volume 12.1 fl (7.4-10.4); Monocytes # 0.4 K/mm3 (0.1-1.0); Monocytes % 10.1 % (1.7-9.3); Neutrophils # 2.3 K/mm3 (1.8-7.8); Neutrophils % 53.2 % (37.0-80.0); Platelet Count 111 K/mm3 (142-424); Red Blood Count 2.97 M/mm3 (4.60-6.20); Red Cell Distribution Width 16.4 % (11.5-17.5); White Blood Count 4.4 K/mm3 (4.8-10.8)
[2022-06-05 06:34] LABS: Chloride 107 mmol/L (98-107)
[2022-06-05 06:35] LABS: Potassium 3.6 mmoL/L (3.5-5.1); Sodium 136 mmol/L (136-145)
[2022-06-05 06:38] LABS: Anion Gap 4.6 mEq/L (5-15); Blood Urea Nitrogen 6 mg/dl (9-20); Calcium 7.6 mg/dl (8.4-10.2); Carbon Dioxide 28 mmol/L (22.0-30.0); Creatinine Clearance Estimated 149 mL/min (50-200); Estimated Glomerular Filt Rate 106 ml/min (>60); GFR (African American) 128 ML/MIN (>60); Glucose 107 mg/dl (74-100)
--- NOTE | 2022-06-05 07:15 | US_ITS ---
FINAL REPORT CLINICAL HISTORY: thrombocytopenia, varices on EGD FINDINGS: Sonographic images of the right upper quadrant were obtained. Pancreas is within normal limits. There is a 1.8 cm left hepatic lobe cyst.Otherwise, the liver has an unremarkable appearance.The gallbladder appears normal without evidence of gallstones.There is no evidence of biliary ductal dilatation.The common duct measures 2 mm. Limited images of the right kidney are unremarkable and measures 11.4 cm in length. IMPRESSION: Left hepatic lobe cyst, otherwise unremarkable right upper quadrant ultrasound. Reviewed, Interpreted and Dictated by Mumtaz Strange III, MD Transcribed by Nelli Rose Authenticated and [facility]
--- NOTE | 2022-06-05 07:17 | EXP.SURG.PN ---
Subjective Patient reports: no new complaints and feels better Exam Data for Last 24 hours Vital signs and Labs for Last 24 Hours: Temp Pulse Resp BP Pulse Ox 98.2 F 57 L 16 109/48 L 100 06/05/22 04:00 06/05/22 04:00 06/05/22 04:00 06/05/22 04:00 06/05/22 04:00 Laboratory Results - last 24 hr 06/03/22 14:00: Blood Type A Positive, Antibody Screen Negative, Crossmatch (AHG) See Detail 06/04/22 12:00: Hgb 7.1 L D, Hct 21.8 L 06/04/22 19:18: Hgb 8.7 L D, Hct 27.2 L 06/05/22 05:45: WBC 4.4 L, RBC 2.97 L D, Hgb 8.1 L, Hct 25.5 L, MCV 85.6, MCH 27.1, MCHC 31.7 L, RDW 16.4, Plt Count 111 L, MPV 12.1 H, Neut % (Auto) 53.2, Lymph % (Auto) 35.4, Conway % (Auto) 10.1 H, Eos % (Auto) 1.2, Baso % (Auto) 0.2, Neut # (Auto) 2.3, Lymph # (Auto) 1.6, Conway # (Auto) 0.4, Eos # (Auto) 0.1, Baso # (Auto) 0.0 06/05/22 05:45: Sodium 136, Potassium 3.6, Chloride 107, Carbon Dioxide 28, Anion Gap 4.6 L, BUN 6 L, Creatinine 0.80 D, Estimated Creat Clear 149, Estimated GFR 106, Est GFR ( Amer) 128 D, Glucose 107 H, Calcium 7.6 L I & O for Last 24 hours: Intake & Output 06/02/22 06/03/22 06/04/22 06/05/22 11:59 11:59 11:59 11:59 Intake Total 490 / 490 610 / 610 Output Total 0 / 0 Balance 490 / 490 609 / 609 Weight 190 lb 195 lb 11.2 oz Narrative: Esophagogastroduodenoscopy yesterday did reveal small patchy erosions in the cardia and at least superficial veins with some dilatation (possible varices). Biopsy of increased inflammatory focus did result in venous rent requiring clip placement. Visualization of the proximal stomach exceptionally limited due to very poor distention despite prolonged efforts. Constitutional Constitutional: no acute distress *Routine Respiratory Exam Respiratory: Absent respiratory distress *Routine Cardiovascular Exam Cardiovascular: Absent tachycardia *Routine Abdominal Exam Abdominal: Present soft Progress Note: A&P Assessment and plan (1) Acute blood loss anemia: Status: Acute Assessment and plan: Most likely secondary to proximal gastric body source (patchy small erosions and superficial veins with some distention versus varices). As noted above, visualization during EGD particularly limited in this region secondary to poor gastric distention. A short-term repeat EGD warranted; however, this will be deferred to the patient's preferred bleaching machine operator in [place] (unless needed urgently at this facility). Continue management as per primary service. Hepatic ultrasound ordered per primary service. (2) Melena: Status: Acute (3) Weakness: Status: Acute
[2022-06-05 08:00] VITALS: BP 120/59; PULSE 63; RESP 16; TEMP 36.5; O2SAT 98
--- NOTE | 2022-06-05 08:48 | EXP.DC.SUM ---
General Admission date:: 06/03/22 Discharge date: 06/05/22 HPI HPI HPI: This is a 41-year-old gentleman seen in consultation from the Hospitalist Service after evaluation in the emergency department for progressive weakness/fatigue. He was found to have fairly profound anemia with a hemoglobin of 5.8. Stool guaiac positive. Intermittent dark stool . He has received 1 unit of packed red blood cells and states he feels not too bad . He is scheduled to receive an additional 1 unit of packed red blood cells this morning. Please see HPI forwarded from admission H&P below. Forwarded from admission H&P: Mr. Bray is a pleasant 41-year-old gentleman with no significant past medical history. States he has been having progressive weakness and fatigue over the past month. His family remarked that he is gotten more pale over the past week and encouraged him to come to the ER for evaluation. On arrival the patient is stable on room air, normal blood pressure normal heart rate. Labs concerning for marked anemia with hemoglobin of 5.3. No other significant lab abnormalities. Stool guaiac positive. He does report that he has been having some intermittent dark stools and epigastric discomfort like heartburn for the past few weeks. He does not drink regularly, maybe once a month. Takes NSAIDs once a week for wrist pain. Otherwise in his normal baseline health. Medicine consulted for admission. Denies chest pain, shortness of breath, syncope, confusion Hospital Course Hospital Course Hospital Course: 41 yo M with progressive weakness over the past 2-4 weeks.? Noted to have melenic stools at home. Found to have profound normocytic anemia on work-up.? ER consulted for admission, Hospitalist decided to admit for transfusion and Surgery consult for EGD.? Differential diagnosis includes gastritis, gastric ulcer disease, H. pylori, PUD, NSAID related gastric injury.? Problems addressed as follows: Dx: GI bleed Epiastric pain Weakness Blood loss anemia Thrombocytopenia Mr. Bray was initiated for profound anemia with a hemoglobin of 5.3 on admission. Received a total of 3 units with improvement in his hemoglobin to 8.1 on day of discharge. Initially hemoglobin peaked at 8.7 but settled at 8.1. Also developed thrombocytopenia during admission with platelet count of 200,000 decreasing to 110,000 on day of discharge. He had no active signs of bleeding. Scope was performed after surgery consult showing some gastric veins/varices and erosive gastritis but no noe ulcers. Minor bleeding after biopsy of stomach clipped a small vein. Vein was clipped and bleeding appeared to stop per procedure report. Suspect thrombocytopenia is a secondary development from transfusion and dilution. Patient also noted to have some hypocalcemia after transfusions which was corrected with IV calcium repletion. Patient remained hemodynamically stable through admission. Had improvement in energy after transfusions. Tolerating regular diet without difficulty. Was started on a Protonix drip on admission with transition to IV Protonix twice daily and transition to oral Protonix twice daily at discharge. Continue twice daily for 1 week then decrease to once daily thereafter until follow-up with GI in [place]. Of note, right upper quadrant ultrasound obtained on day of discharge due to thrombocytopenia and questionable varices on EGD. Liver parenchyma appeared normal. No notation of portal hypertension. Incidental hepatic lobe cyst identified but otherwise benign appearing right upper quadrant ultrasound. Peripheral smear from blood on presentation prior to transfusion still pending. Family requested to be referred to Dr. Gan for further evaluation and management. We will schedule outpatient follow-up. Patient okay to eat regular diet. Recommend avoiding NSAIDs, tobacco products, alcohol. Plan for follow-up with repeat labs in a week with PCP. Stable for discharg
[2022-06-07 07:26] LABS: Peripheral Smear Review Scanned Result
--- NOTE | 2022-06-08 13:36 | CARE MANAGER ---
Spoke with patient for post-discharge phone interview, no answer.
== END 2022-06-05 11:43 | disposition home or self-care (01) ==
LOC: ER 15:14 → 2ND 06-04 00:50
PROVIDERS: Surgery; Admitting Provider Internal Medicine Adolescent Medicine; Emergency Provider Emergency Medicine; PCP Physician Assistant; Visit Provider Internal Medicine Adolescent Medicine
PROC: 0DJ08ZZ Inspection of Upper Intestinal Tract, Via Natural or Artificial Opening Endoscopic (ICD-10-PCS; CPT 43235; principal; 2022-06-04 13:00)
DX: D62 Acute posthemorrhagic anemia (principal); Z20.822 Contact with and (suspected) exposure to COVID-19; K92.1 Melena; R53.1 Weakness; K92.2 Gastrointestinal hemorrhage, unspecified; D69.6 Thrombocytopenia, unspecified
CPT/HCPCS: 43239; 43255; 36415; 76705; 80048; 80053; 82272; 83605; 83690; 83735; 85014; 85018; 85025; 85610; 85730; 86850; 99285; C9803; G0328; G0378; J2704; P9016; U0003; U0005

== ENCOUNTER 2024-03-10 21:42 | Emergency (ER) | payer BC, SELFPAY ==
[2024-03-10 21:43] VITALS: BP 128/83; PULSE 62; RESP 18; TEMP 36.7; O2SAT 100; BMI 28.8
--- NOTE | 2024-03-10 22:02 | CT_ITS ---
PROCEDURE INFORMATION: Exam: CT Abdomen And Pelvis Without Contrast Exam date and time: 03/10/2024 10:21 PM Age: 43 years old Clinical indication: Abdominal pain; Flank; Right; Additional info: Acute right flank pain TECHNIQUE: Imaging protocol: Computed tomography of the abdomen and pelvis without contrast. Radiation optimization: All CT scans at this facility use at least one of these dose optimization techniques: automated exposure control; mA and/or kV adjustment per patient size (includes targeted exams where dose is matched to clinical indication); or iterative reconstruction. COMPARISON: US ABDOMEN LIMITED 06/05/2022 7:54 AM FINDINGS: Tubes, catheters and devices: None noted. Lungs: Lung bases appear clear. Heart: No significant coronary calcifications. No cardiomegaly. No significant pericardial effusion. Liver: Normal. No mass. Gallbladder and biliary ducts: Normal. No calcified stones. No ductal dilation. Pancreas: Normal. No ductal dilation. Spleen: Splenectomy. Adrenal glands: Normal. No mass. Kidneys and ureters: 3 mm right UPJ calculus with moderate right hydronephrosis. Stomach and bowel: Unremarkable. No obstruction. No mucosal thickening. Appendix: No evidence of appendicitis. Intraperitoneal space: Unremarkable. No free air. No significant fluid collection. Retroperitoneal space: No significant retroperitoneal inflammatory changes are noted. Vasculature: Unremarkable. No abdominal aortic aneurysm. Lymph nodes: Unremarkable. No enlarged lymph nodes. Urinary bladder: Unremarkable as visualized. Reproductive: Unremarkable as visualized. Bones/joints: Unremarkable. No acute fracture. Soft tissues: Unremarkable. IMPRESSION: 1. 3 mm right UPJ calculus with moderate right hydronephrosis. 2. Splenectomy.
--- NOTE | 2024-03-10 22:04 | HMH.EDGENADL ---
Discharge Plan Disposition Chief Complaint: Abdominal Pain Prescriptions Prescriptions: New ibuprofen 800 mg tablet 800 mg PO TID PRN (Reason: pain) 7 Days Qty: 20 0RF hydrocodone-acetaminophen 5-325 mg tablet 1 tab PO Q6H PRN (Reason: pain) 3 Days Qty: 12 0RF tamsulosin [Flomax] 0.4 mg capsule 0.4 mg PO DAILY 7 Days Qty: 7 0RF ondansetron 4 mg tablet,disintegrating 4 mg PO Q6H PRN (Reason: nausea and vomiting) 5 Days Qty: 20 0RF No Action pantoprazole 40 mg Tablet,Delayed Release (Dr/Ec) 40 mg PO BID 30 Days Qty: 60 0RF Referrals Follow up/Referrals: Tony Costa DO [Primary Care Provider] - See instructions Activity Restrictions/Add. Instructions Additional Instructions/Restrictions: You have a 5 mm proximal obstructing ureteral stone. This is possible that it will pass on its own but as discussed I would go ahead make an appointment with urologist and follow-up return to the emergency department with intractable pain nausea vomiting high fevers or other concerns. Clinical Impressions Clinical Impression: Acute right flank pain, Hydronephrosis concurrent with and due to calculi of kidney and ureter Instructions Patient Instructions: DI for Acute Abdominal Pain Print Language Print Language: Greek Discharge ED Provider: India Frias General Adult HPI General Chief complaint: Abdominal Pain Stated complaint: lower back pain Time Seen by Provider: 03/10/24 21:59 History of Present Illness HPI narrative: 43-year-old male present today with right flank pain that started 1 hour prior to arrival he was in his normal state of health prior to that. Radiating around to the right anterior aspect of his lower abdomen with some pressure. Has been intermittent and severe at times causing nausea but no significant vomiting no fevers or chills hematuria etc. 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 No anterior abdominal discomfort. Related Data Previous Rx's ?Medication ?Instructions ?Recorded pantoprazole 40 mg tablet,delayed 40 mg PO BID 30 days #60 tabs 06/05/22 release hydrocodone 5 mg-acetaminophen 325 1 tab PO Q6H PRN pain 3 days #12 03/10/24 mg tablet tabs ibuprofen 800 mg tablet 800 mg PO TID PRN pain 7 days #20 03/10/24 tabs ondansetron 4 mg disintegrating 4 mg PO Q6H PRN nausea and 03/10/24 tablet vomiting 5 days #20 tabs tamsulosin 0.4 mg capsule (Flomax) 0.4 mg PO DAILY 7 days #7 caps 03/10/24 Allergies Allergy/AdvReac Type Severity Reaction Status Date / Time Penicillins (PENICILLINS) Allergy Unknown Verified 09/23/21 09:25 [facility] Disclaimer: The information contained in this section may have been updated after the patient was seen, as this information can be updated by other users. Medical History (Updated 03/10/24 @ 22:55 by India Frias MD) No significant past medical history No significant past medical history Family History (Updated 06/03/22 @ 17:06 by Zoraida Reid RN) Other No significant family history Social History (Updated 06/03/22 @ 17:23 by Flavio Winston MD) Smoking Status: Unknown if ever smoked alcohol intake: never substance use type: marijuana current occupational status: other Other Medical History Have you received the Flu Vaccine for this season: No Have you received the Pneumonia Vaccine: No ROS Obtained: Yes All systems reviewed & no additional complaints except as documented Physical Exam General General appearance: in distress (And pain) Respiratory Respiratory exam: Present normal lung sounds bilaterally Cardiovascular Cardiovascular exam: Present regular rate and normal rhythm Abdominal Exam Abdominal exam: Present soft; Absent distention or tenderness Back Exam Back exam: Absent CVA tenderness (R) or CVA tenderness (L) Neurological Exam Neurological exam: Present alert and oriented X3 Medical Decision Making Medical Records Screening: Per USPSTF and CDC recommendations, given the prevalence of disease in our region, it is our hospital?s policy to screen for HIV and viral Hepatitis for all patients aged 18 and over and those with ongoing risk factors. Juan Inquiry Pt receiving controlled substance: No Vital Signs: 03/10/24 21:43 Temperature 98.1 F Temperature Source Oral Pulse Rate [Left] 62 Respiratory Rate 18 Blood Pressure [Right Arm] 128/83 Blood Pressure Mean [Right Arm] 98 02 Sat by Pulse Oximetry 100 Oxygen Delivery Method Room Air Lab Data Lab results reviewed: Yes I reviewed the patient's lab results. Lab Results 03/10/24 22:02: WBC 15.3 H, RBC 5.00, Hgb 15.1, Hct 44.2, MCV 88.4, MCH 30.2, MCHC 34.1, RDW 14.6, Plt Count 423, MPV 7.9, Neut % (Auto) 30.6 L, Lymph % (Auto) 57.8 H, Early % (Auto) 8.2, Eos % (Auto) 2.0, Baso % (Auto) 1.4, Neut # (Auto) 4.7, Lymph # (Auto) 8.8 H, Early # (Auto) 1.3 H, Eos # (Auto) 0.3, Baso # (Auto) 0.2, Total Counted 100, Neutrophils % (Manual) 32 L, Lymphocytes % (Manual) 52 H, Atypical Lymphs % 3.0, Monocytes % (Manual) 9, Eosinophils % (Manual) 4 H, Platelet Estimate Normal, RBC Morphology Normal, Sodium 141, Potassium 3.2 L, Chloride 105, Carbon Dioxide 24, Anion Gap 15.2 H, BUN 12, Creatinine 0.90, Estimated Creat Clear 126, Estimated GFR 91, Est GFR ( Amer) 110, Glucose 137 H, Calcium 9.2, Total Bilirubin 0.4, AST 40, ALT 32, Alkaline Phosphatase 71, Total Protein 7.4 D, Albumin 4.7, Globulin 2.7, Albumin/Globulin Ratio 1.7 03/10/24 22:02 03/10/24 22:02 Orders (Tests/Meds): ED MEDICATIONS Generic Name Dose Route Start Last Admin Trade Name Freq PRN Reason Stop Dose Admin Lactated Ringer's 1,000 mls @ 999 mls/hr 03/10/24 22:15 03/10/24 22:11 Lactated Ringer's 1000 Ml Bag IV 03/10/24 23:15 999 mls/hr .Q1H1M [place] Administration Discontinued Medications Generic Name Dose Route Start Last Admin Trade Name Freq PRN Reason Stop Dose Admin Ketorolac Tromethamine 15 mg 03/10/24 22:02 03/10/24 22:10 Ketorolac 30mg/Ml Vial IV 03/10/24 22:03 15 mg ONCE ONE Administration Morphine Sulfate 4 mg 03/10/24 22:02 03/10/24 22:10 Morphine 4mg/Ml Syringe IV 03/10/24 22:03 4 mg ONCE ONE Administration Ondansetron HCl 4 mg 03/10/24 22:02 03/10/24 22:10 Ondansetron 4mg/2ml Vial IV 03/10/24 22:03 4 mg ONCE ONE Administration ORDERS Category Date Time Status CT abdomen pelvis wo con Stat Cat Scan 03/10/24 22:02 Completed CBC w/Auto Diff [Complete Blood Count Auto Diff] Stat Lab 03/10/24 22:02 Completed CMP [Comprehensive Metabolic Panel] Stat Lab 03/10/24 22:02 Completed UA [Urinalysis and Microscopic] Stat Lab 03/10/24 22:03 Ordered Medical Decision Narrative: 43-year-old with above history and physical acute right flank pain causing severe intermittent discomfort and nausea most likely kidney stone could be musculoskeletal in nature or other pathology such as bowel obstruction bowel perforation aortic dissection etc. Will attain a noncontrasted CT scan give IV fluids Toradol morphine Zofran and reassess. CT scan performed which I personally interpreted which shows a 5.4 mm proximal ureteral stone causing hydronephrosis and hydroureter. Had a discussion with the patient regarding the likelihood of this passing. Statistically this is likely the past. Will have a trial of passage and he will make a follow-up appointment with outpatient urology. Awaiting urinalysis but assuming that is unremarkable we will treat him with NSAIDs [place] Zofran and Flomax. An addendum will be added if his urinalysis is unremarkable. Critical Care Critical Care Time Critical Care Time: No
[2024-03-10] MEDS: KETOROLAC 30MG/ML VIAL 15 MG IV (22:10)
[2024-03-10] MEDS: ONDANSETRON 4MG/2ML VIAL 4 MG IV (22:10)
[2024-03-10] MEDS: MORPHINE 4MG/ML SYRINGE 4 MG IV (22:10)
[2024-03-10] MEDS: LACTATED RINGERS 1000ML 1,000 ML 999 ML IV (22:11)
[2024-03-10 22:13] LABS: Basophils # 0.2 K/mm3 (0-0.2); Basophils % 1.4 % (0.1-2.0); Eosinophils # 0.3 K/mm3 (0.0-0.4); Hematocrit 44.2 % (42.0-52.0); Hemoglobin 15.1 g/dL (14.1-18.0); Lymphocytes # 8.8 K/mm3 (0.7-4.5); Lymphocytes % 57.8 % (10-50); Mean Corpuscular HGB Conc 34.1 g/dL (31.8-35.4); Mean Corpuscular Hemoglobin 30.2 pg (27.0-31.2); Mean Corpuscular Volume 88.4 fl (80-94); Mean Platelet Volume 7.9 fl (7.4-10.4); Monocytes # 1.3 K/mm3 (0.1-1.0); Monocytes % 8.2 % (1.7-9.3); Neutrophils # 4.7 K/mm3 (1.8-7.8); Neutrophils % 30.6 % (37.0-80.0); Platelet Count 423 K/mm3 (142-424); Red Cell Distribution Width 14.6 % (11.5-17.5); White Blood Count 15.3 K/mm3 (4.8-10.8)
[2024-03-10 22:16] LABS: MANUAL DIFFERENTIAL MANUAL DIFFERENTIAL (MANUAL DIFF)
[2024-03-10 22:23] LABS: Alanine Aminotransferase 32 U/L (12-78); Albumin Level 4.7 g/dl (3.5-5.0); Albumin/Globulin Ratio 1.7 (1.1-1.8); Alkaline Phosphatase 71 U/L (38-126); Anion Gap 15.2 mEq/L (5-15); Aspartate Amino Transferase 40 U/L (17-59); Bilirubin,Total 0.4 mg/dl (0.2-1.3); Blood Urea Nitrogen 12 mg/dl (9-20); Calcium 9.2 mg/dl (8.4-10.2); Carbon Dioxide 24 mmol/L (22.0-30.0); Chloride 105 mmol/L (98-107); Creatinine Clearance Estimated 126 mL/min (50-200); Estimated Glomerular Filt Rate 91 ml/min (>60); GFR (African American) 110 ML/MIN (>60); Globulin 2.7 g/dL (1.3-3.2); Glucose 137 mg/dl (74-100); Potassium 3.2 mmoL/L (3.5-5.1); Sodium 141 mmol/L (136-145); Total Protein,Serum 7.4 g/dl (6.3-8.2)
[2024-03-10 22:52] LABS: Eosinophils % 4 % (0-3); Lymphocytes % 52 % (10-50); Monocytes % 9 % (2-9); Neutrophils % 32 % (42-76); Platelet Estimate Normal; RBC Morphology Normal; Total Cells Counted 100
[2024-03-10 23:02] LABS: Microscopic, Urine URINE MICROSCOPIC (MICROSCOPIC)
[2024-03-10 23:04] LABS: Bilirubin,Urine Negative (Negative); Blood, Urine 3+ (Negative); Glucose,Urine (UA) Negative (Negative); Ketones,Urine Negative (Negative); Leukocyte Esterase,Urine Negative (Negative); Nitrate,Urine Negative (Negative); Protein,Urine Negative (Negative); Specific Gravity, Urine 1.025 (1.005-1.030); Urobilinogen,Urine 0.2 EU/dl (0.2)
[2024-03-10 23:06] LABS: Appearance,Urine Cloudy (Clear); Color,Urine Dark Yellow (Yellow)
[2024-03-10 23:19] VITALS: BP 138/72; PULSE 62; RESP 18; TEMP 36.6; O2SAT 98
[2024-03-10 23:27] LABS: RBC,Urine 20-50 #/hpf (0-3); Squamous Epithelial Cell,Urine Occasional #/hpf (0-5); WBC,Urine Occasional #/hpf (0-3)
== END 2024-03-10 23:55 | disposition admitted as inpatient to this hospital (09) ==
LOC: ER 21:54
PROVIDERS: Emergency Provider Student in an Organized Health Care Education/Training Program; PCP Internal Medicine
DX: N13.2 Hydronephrosis with renal and ureteral calculous obstruction (principal); M54.50 Low back pain, unspecified; R10.30 Lower abdominal pain, unspecified; R11.0 Nausea
CPT/HCPCS: 74176; 80053; 81001; 85007; 85025; 85027; 96361; 96374; 96375; 99284; J1885; J2270; J2405; J7120

== ENCOUNTER 2024-03-27 11:18 | Outpatient (CLI) | payer BC, SELFPAY ==
[2024-03-27 11:32] LABS: Microscopic, Urine URINE MICROSCOPIC (MICROSCOPIC)
[2024-03-27 12:15] LABS: Blood Urea Nitrogen 15 mg/dl (9-20); Estimated Glomerular Filt Rate 81 ml/min (>60); GFR (African American) 98 ML/MIN (>60)
[2024-03-27 12:50] LABS: Appearance,Urine CLEAR (Clear); Bilirubin,Urine Negative (Negative); Blood, Urine 2+ (Negative); Color,Urine YELLOW (Yellow); Glucose,Urine (UA) Negative (Negative); Ketones,Urine Negative (Negative); Leukocyte Esterase,Urine TRACE (Negative); Nitrate,Urine Negative (Negative); Protein,Urine Negative (Negative); Urobilinogen,Urine 0.2 EU/dl (0.2)
[2024-03-27 13:11] LABS: Squamous Epithelial Cell,Urine Occasional #/hpf (0-5); WBC,Urine Occasional #/hpf (0-3)
== END 2024-03-27 23:59 | disposition home or self-care (01) ==
LOC: LAB 11:20
PROVIDERS: PCP Internal Medicine; Visit Provider Urology
DX: N13.2 Hydronephrosis with renal and ureteral calculous obstruction (principal)
CPT/HCPCS: 36415; 81001; 82565; 84520; 87086

== ENCOUNTER 2024-03-31 13:48 | Outpatient (CLI) | payer BC, SELFPAY ==
--- NOTE | 2024-03-31 13:49 | US_ITS ---
FINAL REPORT TECHNIQUE: Ultrasound images of the kidneys and bladder were obtained. CLINICAL HISTORY: stones COMPARISON: None FINDINGS: The right kidney measures 10.9 cm in length. It is normal in echogenicity. There is no hydronephrosis. There is a small focus of echogenicity that may represent a tiny nonobstructing stone in the right kidney. The left kidney measures 13 cm in length. It is normal in echogenicity. There is no hydronephrosis. There is a parapelvic cyst in the left kidney measuring 19 mm. IMPRESSION: Small focus of echogenicity that may possibly represent a tiny nonobstructing right renal stone. No evidence of hydronephrosis or mass. Reviewed, Interpreted and Dictated by Betsy Sims MD Transcribed by Aide Orantes Authenticated and [facility]
--- NOTE | 2024-03-31 14:04 | XR_ITS ---
FINAL REPORT CLINICAL HISTORY: Stone; right sided COMPARISON: None FINDINGS: SINGLE VIEW ABDOMEN A single view of the abdomen was obtained. There is a nonobstructive bowel gas pattern. There are no abnormally dilated loops of small bowel. Surgical clips are noted in the left upper quadrant. No radiopaque renal stone is identified. IMPRESSION: Nonobstructive bowel gas pattern. No radiopaque renal stone is identified. Reviewed, Interpreted and Dictated by Betsy Sims MD Transcribed by Aide Orantes Authenticated and [facility]
== END 2024-03-31 23:59 | disposition home or self-care (01) ==
LOC: RAD 13:49
PROVIDERS: PCP Internal Medicine; Visit Provider Urology
DX: N20.1 Calculus of ureter (principal); N13.2 Hydronephrosis with renal and ureteral calculous obstruction
CPT/HCPCS: 74018; 76770

== ENCOUNTER 2024-04-03 15:27 | Outpatient (CLI) | payer BC, SELFPAY ==
[2024-04-03 15:16] LABS: Microscopic, Urine URINE MICROSCOPIC (MICROSCOPIC)
[2024-04-03 15:22] LABS: Appearance,Urine CLEAR (Clear); Bilirubin,Urine Negative (Negative); Blood, Urine 2+ (Negative); Color,Urine YELLOW (Yellow); Glucose,Urine (UA) Negative (Negative); Ketones,Urine Negative (Negative); Leukocyte Esterase,Urine Negative (Negative); Nitrate,Urine Negative (Negative); Protein,Urine Negative (Negative); Urobilinogen,Urine 0.2 EU/dl (0.2)
[2024-04-03 16:17] LABS: Bacteria,Urine 1+ /lpf; Mucus,Urine 1+ /lpf; RBC,Urine 20-50 #/hpf (0-3)
== END 2024-04-03 23:59 | disposition home or self-care (01) ==
LOC: LAB.DROPOF 15:27
PROVIDERS: PCP Urology; Visit Provider Urology
DX: N20.1 Calculus of ureter (principal)
CPT/HCPCS: 81001; 87086

== ENCOUNTER 2024-04-24 11:13 | Outpatient (CLI) | payer BC, SELFPAY ==
--- NOTE | 2024-04-24 11:18 | XR_ITS ---
FINAL REPORT CLINICAL HISTORY: kidney stone february 2024 COMPARISON: 03/31/2024 FINDINGS: SINGLE VIEW ABDOMEN A single view of the abdomen was obtained. There is a nonobstructive bowel gas pattern. There are no abnormally dilated loops of small bowel. No abnormal calcifications are identified in the abdomen. There are a few small calcifications present in the pelvis that are likely phleboliths. Surgical clips are noted in the left upper quadrant. IMPRESSION: Nonobstructive bowel gas pattern, without calcification to suggest a renal stone. Reviewed, Interpreted and Dictated by Betsy Sims MD Transcribed by Aide Orantes Authenticated and [facility]
--- NOTE | 2024-04-24 11:18 | US_ITS ---
FINAL REPORT TECHNIQUE: Ultrasound images of the kidneys were obtained. CLINICAL HISTORY: .repeat scan of kidneys to look for stone COMPARISON: 03/31/2024 FINDINGS: RENAL ULTRASOUND Limited images of the liver parenchyma demonstrate normal echogenicity. The right kidney measures 10.4 cm in length. It is normal echogenicity. There is no hydronephrosis. The left kidney measures 12.5 cm in length. It is normal echogenicity. There is no hydronephrosis. IMPRESSION: No obvious renal stone disease. Reviewed, Interpreted and Dictated by Betsy Sims MD Transcribed by Dinah Bauman Authenticated and [facility]
== END 2024-04-24 23:59 | disposition home or self-care (01) ==
LOC: RAD 11:15
PROVIDERS: PCP Internal Medicine; Visit Provider Urology
DX: N20.1 Calculus of ureter (principal); R31.9 Hematuria, unspecified
CPT/HCPCS: 74018; 76770

== ENCOUNTER 2024-05-08 16:16 | Outpatient (CLI) | payer BC, SELFPAY ==
[2024-05-08 15:53] LABS: Microscopic, Urine URINE MICROSCOPIC (MICROSCOPIC)
[2024-05-08 16:16] LABS: Appearance,Urine CLEAR (Clear); Bilirubin,Urine Negative (Negative); Blood, Urine Negative (Negative); Color,Urine YELLOW (Yellow); Glucose,Urine (UA) Negative (Negative); Ketones,Urine Negative (Negative); Leukocyte Esterase,Urine Negative (Negative); Nitrate,Urine Negative (Negative); Protein,Urine Negative (Negative); Specific Gravity, Urine 1.025 (1.005-1.030); Urobilinogen,Urine 0.2 EU/dl (0.2)
[2024-05-08 16:41] LABS: Bacteria,Urine Trace /lpf; Mucus,Urine 3+ /lpf; Squamous Epithelial Cell,Urine Occasional #/hpf (0-5); WBC,Urine Occasional #/hpf (0-3)
== END 2024-05-08 23:59 | disposition home or self-care (01) ==
LOC: LAB.DROPOF 16:36
PROVIDERS: PCP Urology; Visit Provider Urology
DX: R31.9 Hematuria, unspecified (principal)
CPT/HCPCS: 81001